=== PATIENT | female | born 2000 | race Hispanic/Latino ===

== ENCOUNTER 2021-03-05 19:07 | Emergency (ER) | payer BC, SELFPAY ==
[2021-03-05] MEDS ORDERED: Morphine 4 MG/ML VIAL ONE (19:36)
== END 2021-03-05 21:09 | disposition home or self-care (01) ==
LOC: CSHERS 19:07
DX: S82.52XA Displaced fracture of medial malleolus of left tibia, initial encounter for closed fracture (principal); S82.832A Other fracture of upper and lower end of left fibula, initial encounter for closed fracture; W18.40XA Slipping, tripping and stumbling without falling, unspecified, initial encounter
CPT/HCPCS: 27760; 96372; J2270